=== PATIENT | female | born 1970 | race Caucasian/White ===

== ENCOUNTER 2016-12-27 11:42 | Inpatient (IN) | payer BC, OTHER ==
[2016-12-27] MEDS ORDERED: SOLU-Medrol 125 MG VIAL IVP ONE (14:26)
[2016-12-27] MEDS ORDERED: MORPHINE SULFATE INJ 4 MG IVP PRN (14:26)
[2016-12-27] MEDS ORDERED: NORCO 10/325 TAB PO PRN (14:26)
[2016-12-27] MEDS ORDERED: NS 1000 ML 1,000 ML IV ONE (14:26)
--- NOTE | 2016-12-27 14:28 | DR.UPDATE ---
H&P Update History and Physical Update: HISTORY AND PHYSICAL UPDATE FOR ADMISSION 12/27/16 MS. FENTON'S H&P WAS COMPLETED IN OUR OFFICE PRIOR TO ADMISSION. SHE HAS BEEN SEEN AND EXAMINED WITH NO CHANGES NOTED.
[2016-12-27 15:08] LABS: BASOPHILS # (AUTO) 0.1 X10^3/uL (0.0-0.1); BASOPHILS % (AUTO) 0.5 % (0.2-1.0); EOSINOPHILS % (AUTO) 0.1 % (0.9-2.9); HEMATOCRIT 42.3 % (36.0-47.0); HEMOGLOBIN 14.2 g/dL (12.0-16.0); LYMPHOCYTES # (AUTO) 3.3 X10^3/uL (1.3-2.9); MEAN CORPUSCULAR HEMOGLOBIN 28.7 pg (27.0-34.0); MEAN CORPUSCULAR HGB CONC 33.5 g/dL (33.0-35.0); MEAN CORPUSCULAR VOLUME 85.8 fL (80.0-100.0); MEAN PLATELET VOLUME 8.1 fL (7.4-11.0); MONOCYTES # (AUTO) 1.4 x10^3/uL (0.3-0.8); MONOCYTES % (AUTO) 8.7 % (0.0-13.0); NEUTROPHILS # (AUTO) 11.1 x10^3/uL (2.2-4.8); NEUTROPHILS % (AUTO) 69.7 % (42.0-75.0); PLATELET COUNT 324 X10^3/uL (150.0-450.0); RED BLOOD COUNT 4.93 X10^6/uL (3.5-5.4); WHITE BLOOD COUNT 15.9 X10^3/uL (3.6-10.0)
[2016-12-27 15:17] LABS: ALANINE AMINOTRANSFERASE 42 Units/L (12-78); ALBUMIN 3.5 g/dL (3.4-5.0); ALKALINE PHOSPHATASE 135 Units/L (46-116); ASPARTATE AMINO TRANSFERASE 16 Units/L (15-37); BLOOD UREA NITROGEN 26 mg/dL (7-18); CALCIUM 8.7 mg/dL (8.5-10.1); CARBON DIOXIDE 27.1 mmol/L (21-32); CHLORIDE 102 mmol/L (98-107); COR NA(FOR HYPERGLY) 139 mmol/L (136-145); CREATININE 0.95 mg/dL (0.55-1.02); GLUCOSE 130 mg/dL (65-99); SODIUM 138 mmol/L (136-145); TOTAL PROTEIN 7.5 g/dL (6.4-8.2); eGFR BLACK RACES > 60 (>60); eGFR NON BLACK RACES > 60 (>60)
[2016-12-27] MEDS ORDERED: NS 1/2 1000 ML IV 1,000 ML IV ONE (15:25)
[2016-12-27] MEDS: ROCEPHIN VIAL 1 GM 1 GM in NS 50 ML IV + SPIKE MINIBAG* 50 ML IV SCH (15:36)
[2016-12-27] MEDS: NS 1/2 1000 ML IV 1,000 ML IV SCH (15:36)
[2016-12-27] MEDS: VIBRAMYCIN 100 MG in NS 100 ML IV + SPIKE MINIBAG* 100 ML IV SCH ×2 (15:37→23:59)
[2016-12-27] MEDS: SINGULAIR TAB 10 MG PO SCH (15:38)
[2016-12-27] MEDS: ROBITUSSIN DM PO SCH ×3 (15:38→20:56)
[2016-12-27 16:20] LABS: MYCOPLASMA PNEUMONIAE IGM AB NEGATIVE (NEGATIVE)
[2016-12-27] MEDS: DUONEB 0.5 MG/3 MG NEB SCH ×2 (16:28→21:39)
[2016-12-27] MEDS ORDERED: SALINE 3% 15 ML NEB TX NEB ONE (16:40)
[2016-12-27 17:28] LABS: BILIRUBIN,URINE NEGATIVE (NEGATIVE); BLOOD/HEMOGLOBIN,URINE 1+ (NEGATIVE); GLUCOSE, URINE NEGATIVE (NEGATIVE); KETONES,URINE NEGATIVE (NEGATIVE); LEUKOCYTE ESTERASE ,URINE NEGATIVE (NEGATIVE); NITRITES,URINE NEGATIVE (NEGATIVE); PROTEIN,URINE 1+ (NEGATIVE); UROBILINOGEN,URINE NORMAL (NORMAL)
[2016-12-27] MEDS ORDERED: NS 100 ML IV 100 ML IV ONE (17:36)
[2016-12-27 17:39] LABS: APPEARANCE,URINE CLEAR (CLEAR); BACTERIA,URINE TRACE /HPF (NEGATIVE); CALCIUM OXALATE CRYSTALS,UR MODERATE /HPF (NEGATIVE); COLOR,URINE YELLOW (YELLOW); RBC,URINE RARE /HPF (NEGATIVE); SQUAMOUS EPITHELIAL CELL,UR FEW /HPF (NEGATIVE)
--- NOTE | 2016-12-27 19:17 | RAD ---
PA and lateral Chest Indication: Cough Comparison: 09/26/2012 Findings: The trachea is midline. The cardiac silhouette is borderline enlarged. The lungs are clear without focal infiltrate or effusion. The bony thorax is unremarkable. IMPRESSION: 1.Borderline cardiomegaly without acute airspace disease or CHF. Reported By:
--- NOTE | 2016-12-27 19:39 | CT ---
Chest CT with contrast: Indication: Bronchopneumonia, asthma. Comparison: Chest series dated December 27, 2016 at 1756 hr. Technique: Helical CT imaging of the chest was performed following the intravenous administration of contrast. Continuous transverse reconstructions as well as multiplanar reformations were provided. Findings: There is a poorly defined consolidation within the posterior sulcus of the left lower lobe . There is also mild dependent hypoventilatory change. Otherwise, the lungs are clear. The central a irways are patent. There is no pneumothorax or pleural effusion. No enlarged thoracic lymph nodes are identified. The vascular structures are within normal limits. T he heart is unremarkable, without pericardial effusion. Allowing for the arterial phase of contrast, the imaged superior abdomen is without acute abnormalit y. The patient is status post cholecystectomy. No acute skeletal abnormality or worrisome skeletal l esion is identified. Impression: Small left lower lobe consolidation, consistent with a history of pneumonia. Otherwise unremarkable CT of the chest. . Reported By:
[2016-12-27] MEDS: SOLU-Medrol 125 MG VIAL IVP SCH (21:02)
[2016-12-27] MEDS: HumuLIN R SC PRN (21:05)
[2016-12-28] MEDS: DUONEB 0.5 MG/3 MG NEB SCH ×6 (00:37→20:50)
[2016-12-28] MEDS: SOLU-Medrol 125 MG VIAL IVP SCH ×3 (05:45→21:16)
[2016-12-28] MEDS: HumuLIN R SC PRN ×4 (05:49→21:16)
--- NOTE | 2016-12-28 06:03 | RAD ---
Chest AP portable Indication: Chronic pneumonia. Comparison: December 27, 2016. Findings: There is no pneumothorax, effusion or consolidation. Heart size enlarged. No overt edema s een. Impression: Prominent heart size without other acute chest process. Reported By:
[2016-12-28 06:47] LABS: BASOPHILS % (AUTO) 0.1 % (0.2-1.0); HEMATOCRIT 40.9 % (36.0-47.0); HEMOGLOBIN 13.7 g/dL (12.0-16.0); LYMPHOCYTES # (AUTO) 0.9 X10^3/uL (1.3-2.9); LYMPHOCYTES % (AUTO) 9.7 % (21.0-51.0); MEAN CORPUSCULAR HEMOGLOBIN 29.5 pg (27.0-34.0); MEAN CORPUSCULAR HGB CONC 33.5 g/dL (33.0-35.0); MEAN CORPUSCULAR VOLUME 87.9 fL (80.0-100.0); MEAN PLATELET VOLUME 8.6 fL (7.4-11.0); MONOCYTES # (AUTO) 0.2 x10^3/uL (0.3-0.8); MONOCYTES % (AUTO) 2.3 % (0.0-13.0); NEUTROPHILS # (AUTO) 8.5 x10^3/uL (2.2-4.8); NEUTROPHILS % (AUTO) 87.9 % (42.0-75.0); PLATELET COUNT 260 X10^3/uL (150.0-450.0); RED BLOOD COUNT 4.65 X10^6/uL (3.5-5.4); RED CELL DISTRIBUTION WIDTH 13.6 % (11.6-16.5); WHITE BLOOD COUNT 9.7 X10^3/uL (3.6-10.0)
[2016-12-28 07:23] LABS: ALANINE AMINOTRANSFERASE 47 Units/L (12-78); ALBUMIN 3.2 g/dL (3.4-5.0); ALKALINE PHOSPHATASE 133 Units/L (46-116); ASPARTATE AMINO TRANSFERASE 22 Units/L (15-37); BLOOD UREA NITROGEN 14 mg/dL (7-18); CALCIUM 8.6 mg/dL (8.5-10.1); CARBON DIOXIDE 23.9 mmol/L (21-32); CHLORIDE 104 mmol/L (98-107); COR CA(FOR HYPOALB) 9.2 mg/dL (8.5-10.1); COR NA(FOR HYPERGLY) 145 mmol/L (136-145); CREATININE 0.85 mg/dL (0.55-1.02); GLUCOSE 206 mg/dL (65-99); SODIUM 142 mmol/L (136-145); TOTAL PROTEIN 7.1 g/dL (6.4-8.2); eGFR BLACK RACES > 60 (>60); eGFR NON BLACK RACES > 60 (>60)
[2016-12-28] MEDS: VIBRAMYCIN 100 MG in NS 100 ML IV + SPIKE MINIBAG* 100 ML IV SCH (08:37)
[2016-12-28] MEDS: ROCEPHIN VIAL 1 GM 1 GM in NS 50 ML IV + SPIKE MINIBAG* 50 ML IV SCH (08:37)
[2016-12-28] MEDS: ROBITUSSIN DM PO SCH ×4 (08:38→21:16)
[2016-12-28] MEDS: SINGULAIR TAB 10 MG PO SCH (08:38)
[2016-12-28] MEDS ORDERED: FORTAZ or TAZICEF INJ 2 GM in NS 50 ML IV + SPIKE MINIBAG* 50 ML IV SCH (09:00)
[2016-12-28 12:46] VITALS: BMI 45.8
[2016-12-28] MEDS: FORTAZ or TAZICEF INJ 2 GM in NS 50 ML IV + SPIKE MINIBAG* 50 ML IV SCH ×2 (14:12→21:14)
[2016-12-28] MEDS: TUSSIONEX PENNKINETIC SUSP PO PRN (14:22)
[2016-12-28] MEDS: NS 1/2 1000 ML IV 1,000 ML IV SCH ×2 (14:24→20:12)
--- NOTE | 2016-12-28 17:02 | PCM.PROG ---
Progress Note - Progress Note for Day of Date: 12/28/16 - Subjective Subjective: PATIENT IS NOTED WITH SHORTNESS OF BREATH ON EXERTION THIS MORNING. SHE CONTINUES WITH A PERSISTENT, PRODUCTIVE COUGH. PATIENT IS AFEBRILE, VITAL SIGNS ARE STABLE. ON AUSCULTATION, LUNGS ARE NOTED WITH SCATTERED WHEEZING AND RHONCHI THROUGHOUT. CBC WNL. CMP WNL EXCEPT: GLUCOSE 206, ALK PHOS 133, ALBUMIN 3.2. MYCOPLASMA PNEUMONIA NEGATIVE. CHEST CT REPORTS SMALL LEFT LOWER LOBE CONSOLIDATION. WE WILL DISCONTINUE ROCEPHIN AND DOXYCYCLINE. WE WILL START FORTAZ, CONTINUE AGGRESSIVE NEB TREATMENTS, AND FOLLOW UP IN AM WITH LABS AND CHEST XRAY. - Past Medical Family Social History Past Med/Fam/Surg Hx: No changes since H&P Allergies: Allergies No Known Drug Allergy Allergy (Verified 09/30/12 09:47) - Review of Systems ROS: No change since H&P - Vital Signs and I&O's Vital Signs: Temperature 98.5 F Pulse Rate [Right Brachial] 92 Pulse Rate 86 Respiratory Rate 20 Blood Pressure [Right Arm] 124/63 Blood Pressure 116/81 O2 Sat by Pulse Oximetry 92 Intake and Output: Intake & Output 12/26/16 12/27/16 12/28/16 12/29/16 11:59 11:59 11:59 11:59 Intake Total 1496 1630 Balance 1496 1630 - Physical Exam Oriented: Normal, Time, Person, Place Eyes: Normal. negative: Blurred Vision, Diplopia, Discharge, Pain, Redness, Photophobia Ear: Normal. negative: Swelling, Ecchymosis, Hemotypanum, Abrasion, Laceration Nose: Normal. negative: Injected, Discharge, Blood Throat: Red, Dry. negative: Tonsillar Hypertrophy, Exudate Respiratory: Generalized, Wheezes, Rhonchi Cardiovascular: Normal. negative: Murmur, Edema : Normal. negative: Dysuria, Hematuria, Frequency, Discharge, Bleeding, Auscultation: Bowel Sounds: Normal. negative: Bruit Palpation: Normal. negative: Spleen Enlarged, Liver Enlarged, Mass Pulsatile Tenderness: Normal. negative: Rebound, Guarding, Rigidity Skin: Normal. negative: Diaphoresis, Wound, Bruising, Ecchymosis Musculoskeletal: Normal Psychiatric: Normal Mood Description: Calm, Appropriate Affect: Normal Speech Pattern: Clear, Appropriate - Laboratory and Diagnostics Result Diagrams: 12/28/16 04:35 12/28/16 04:35 Labs: 12/27/16 17:13 Sputum - Expectorated Sputum Sputum Culture - Preliminary 12/27/16 17:13 Sputum - Expectorated Sputum - Final Laboratory WBC 9.7 X10^3/uL (3.6-10.0) 12/28/16 04:35 RBC 4.65 X10^6/uL (3.5-5.4) 12/28/16 04:35 Hgb 13.7 g/dL (12.0-16.0) 12/28/16 04:35 Hct 40.9 % (36.0-47.0) 12/28/16 04:35 MCV 87.9 fL (80.0-100.0) 12/28/16 04:35 MCH 29.5 pg (27.0-34.0) 12/28/16 04:35 MCHC 33.5 g/dL (33.0-35.0) 12/28/16 04:35 RDW 13.6 % (11.6-16.5) 12/28/16 04:35 Plt Count 260 X10^3/uL (150.0-450.0) 12/28/16 04:35 MPV 8.6 fL (7.4-11.0) 12/28/16 04:35 Neut % 87.9 % (42.0-75.0) H 12/28/16 04:35 Lymph % 9.7 % (21.0-51.0) L 12/28/16 04:35 [place] % 2.3 % (0.0-13.0) 12/28/16 04:35 Eos % 0.0 % (0.9-2.9) L 12/28/16 04:35 Baso % 0.1 % (0.2-1.0) L 12/28/16 04:35 Neut # 8.5 x10^3/uL (2.2-4.8) H 12/28/16 04:35 Lymph # 0.9 X10^3/uL (1.3-2.9) L 12/28/16 04:35 [place] # 0.2 x10^3/uL (0.3-0.8) L 12/28/16 04:35 Eos # 0.0 x10^3/uL (0.0-0.2) 12/28/16 04:35 Baso # 0.0 X10^3/uL (0.0-0.1) 12/28/16 04:35 Absolute Nucleated RBC 0.0 /100WBC 12/28/16 04:35 Sodium 142 mmol/L (136-145) 12/28/16 04:35 Corrected Sodium 145 mmol/L (136-145) 12/28/16 04:35 Potassium 4.7 mmol/L (3.5-5.1) 12/28/16 04:35 Chloride 104 mmol/L (98-107) 12/28/16 04:35 Carbon Dioxide 23.9 mmol/L (21-32) 12/28/16 04:35 BUN 14 mg/dL (7-18) 12/28/16 04:35 Creatinine 0.85 mg/dL (0.55-1.02) 12/28/16 04:35 Est GFR (MDRD) Af Amer > 60 (>60) 12/28/16 04:35 Est GFR (MDRD) Non-Af > 60 (>60) 12/28/16 04:35 Glucose 206 mg/dL (65-99) H 12/28/16 04:35 Calcium 8.6 mg/dL (8.5-10.1) 12/28/16 04:35 Corrected Calcium 9.2 mg/dL (8.5-10.1) 12/28/16 04:35 Magnesium 2.0 mg/dL (1.7-2.9) 12/28/16 04:35 Total Bilirubin 0.40 mg/dL (0.2-1.0) 12/28/16 04:35 AST 22 Units/L (15-37) 12/28/16 04:35 ALT 47 Units/L (12-78) 12/28/16 04:35 Alkaline Phosphatase 133 Units/L (46-116) H 12/28/16 04:35 Total Protein 7.1 g/dL (6.4-8.2) 12/28/16 04:35 Albumin 3.2 g/dL (3.4-5.0) L 12/28/16 04:35 Globulin 3.9 g/dL (2.5-4.5) 12/28/16 04:35 Albumin/Globulin Ratio 0.8 Ratio (1.1-2.1) L 12/28/16 04:35 Specimen Type Clean catch urine 12/27/16 17:06 Urine Color Yellow (YELLOW) 12/27/16 17:06 Urine Appearance Clear (CLEAR) 12/27/16 17:06 Urine pH 5.0 (5.0 - 8.0) 12/27/16 17:06 Ur Specific [place] 1.025 (1.000-1.030) 12/27/16 17:06 Urine Protein 1+ (NEGATIVE) 12/27/16 17:06 Urine Glucose (UA) Negative (NEGATIVE) 12/27/16 17:06 Urine Ketones Negative (NEGATIVE) 12/27/16 17:06 Urine Occult Blood 1+ (NEGATIVE) 12/27/16 17:06 Urine Nitrite Negative (NEGATIVE) 12/27/16 17:06 Urine Bilirubin Negative (NEGATIVE) 12/27/16 17:06 Urine Urobilinogen Normal (NORMAL) 12/27/16 17:06 Ur Leukocyte Esterase Negative (NEGATIVE) 12/27/16 17:06 Urine RBC Rare /HPF (NEGATIVE) 12/27/16 17:06 Urine WBC 0-2 /HPF (NEGATIVE) 12/27/16 17:06 Ur Squamous Epith Cells Few /HPF (NEGATIVE) 12/27/16 17:06 Calcium Oxalate Crystal Moderate /HPF (NEGATIVE) 12/27/16 17:06 Urine Bacteria Trace /HPF (NEGATIVE) 12/27/16 17:06 Ur Culture Indicated? No/not indicated 12/27/16 17:06 Mycoplasma pneumon IgG Negative (NEGATIVE) 12/27/16 14:40 - Plan (1) Pneumonia Status: Acute Qualifiers: Pneumonia type: due to unspecified organism Aspiration pneumonia type: A Laterality: left Lung location: lower lobe of lung Qualified Code(s): J18.1 - Lobar pneumonia, unspecified organism Plan: START FORTAZ IV, DISCONTINUE DOXYCYLINE AND ROCEPHIN, CONTINUE DUONEBS, ROBITUSSIN, TUSSIONEX, SOLUMEDROL, SUPPLEMENTAL OXYGEN, MONITOR LABS AND CHEST XRAY. (2) Asthma Status: Chronic Qualifiers: Asthma severity: moderate persistent Asthma complication type: with acute exacerbation Qualified Code(s): J45.41 - Moderate persistent asthma with ( acute) exacerbation Plan: ABOVE. (3) GERD (gastroesophageal reflux disease) Status: Chronic Qualifiers: Esophagitis presence: esophagitis presence not specified Qualified Code(s) : K21.9 - Gastro-esophageal reflux disease without esophagitis (4) Back pain Status: Chronic Qualifiers: Back pain location: low back pain Chronicity: chronic Back pain laterality: bilateral Sciatica presence: without sciatica Sciatica laterality: S Qualified Code(s): M54.5 - Low back pain; G89.29 - Other chronic pain (5) Diabetes Status: Acute Qualifiers: Diabetes mellitus type: type 2 Diabetes mellitus complication status: without complication Diabetes mellitus complication detail: D Diabetic retinopathy severity: D Proliferative retinopathy type: P Diabetes mellitus macular edema: D Diabetes mellitus detention insulin use: without detention use Laterality: L Chronic kidney disease stage: C Qualified Code(s): E11.9 - Type 2 diabetes mellitus without complications
[2016-12-28] MEDS ORDERED: NS 1/2 1000 ML IV 1,000 ML IV ONE (17:07)
[2016-12-28] MEDS: SNACK - Diabetic Appropriate PO SCH (20:13)
[2016-12-29] MEDS: DUONEB 0.5 MG/3 MG NEB SCH ×6 (00:40→20:17)
[2016-12-29] MEDS: FORTAZ or TAZICEF INJ 2 GM in NS 50 ML IV + SPIKE MINIBAG* 50 ML IV SCH ×3 (06:22→21:19)
[2016-12-29] MEDS: SOLU-Medrol 125 MG VIAL IVP SCH ×3 (06:23→21:21)
[2016-12-29] MEDS: TUSSIONEX PENNKINETIC SUSP PO PRN ×2 (06:23→21:23)
[2016-12-29 06:50] LABS: ALANINE AMINOTRANSFERASE 40 Units/L (12-78); ALBUMIN 3.1 g/dL (3.4-5.0); ALKALINE PHOSPHATASE 119 Units/L (46-116); ASPARTATE AMINO TRANSFERASE 16 Units/L (15-37); BLOOD UREA NITROGEN 15 mg/dL (7-18); CALCIUM 8.5 mg/dL (8.5-10.1); CARBON DIOXIDE 26.9 mmol/L (21-32); CHLORIDE 105 mmol/L (98-107); COR CA(FOR HYPOALB) 9.2 mg/dL (8.5-10.1); COR NA(FOR HYPERGLY) 146 mmol/L (136-145); CREATININE 0.93 mg/dL (0.55-1.02); GLUCOSE 224 mg/dL (65-99); SODIUM 143 mmol/L (136-145); TOTAL PROTEIN 6.8 g/dL (6.4-8.2); eGFR BLACK RACES > 60 (>60); eGFR NON BLACK RACES > 60 (>60)
[2016-12-29 06:54] LABS: BASOPHILS % (AUTO) 0.2 % (0.2-1.0); HEMATOCRIT 39.8 % (36.0-47.0); HEMOGLOBIN 13.2 g/dL (12.0-16.0); LYMPHOCYTES # (AUTO) 0.9 X10^3/uL (1.3-2.9); LYMPHOCYTES % (AUTO) 7.6 % (21.0-51.0); MEAN CORPUSCULAR HEMOGLOBIN 28.7 pg (27.0-34.0); MEAN CORPUSCULAR HGB CONC 33.1 g/dL (33.0-35.0); MEAN CORPUSCULAR VOLUME 86.9 fL (80.0-100.0); MEAN PLATELET VOLUME 8.6 fL (7.4-11.0); MONOCYTES # (AUTO) 0.4 x10^3/uL (0.3-0.8); MONOCYTES % (AUTO) 3.1 % (0.0-13.0); NEUTROPHILS # (AUTO) 10.3 x10^3/uL (2.2-4.8); NEUTROPHILS % (AUTO) 89.1 % (42.0-75.0); PLATELET COUNT 269 X10^3/uL (150.0-450.0); RED BLOOD COUNT 4.59 X10^6/uL (3.5-5.4); RED CELL DISTRIBUTION WIDTH 13.8 % (11.6-16.5); WHITE BLOOD COUNT 11.5 X10^3/uL (3.6-10.0)
--- NOTE | 2016-12-29 07:09 | RAD ---
HISTORY: Congestion and cough. Dyspnea. Single-view of the chest. Comparison: December 28, 2016. Findings: The trachea is midline. The cardiac silhouette is stable from prior. There are increased perihilar interstitial opacities seen, compatible with bronchiolitis/bronchitis. The lungs are otherwise leslee r without focal infiltrate or effusion. The bony thorax is unremarkable. IMPRESSION: Radiographic findings suggesting bronchiolitis/bronchitis. No lobar pneumonia or effusion seen. Reported By:
[2016-12-29] MEDS: SINGULAIR TAB 10 MG PO SCH (09:14)
[2016-12-29] MEDS: ROBITUSSIN DM PO SCH ×4 (09:14→21:19)
[2016-12-29] MEDS: HumuLIN R SC PRN ×3 (12:12→21:23)
[2016-12-29] MEDS ORDERED: NS 1/2 1000 ML IV 1,000 ML IV ONE (13:37)
[2016-12-29] MEDS: NS 1/2 1000 ML IV 1,000 ML IV SCH ×2 (13:46→23:17)
--- NOTE | 2016-12-29 16:58 | PCM.PROG ---
Progress Note - Progress Note for Day of Date: 12/29/16 - Subjective Subjective: PATIENT CONTINUES WITH SHORTNESS OF BREATH ON EXERTION. SHE CONTINUES WITH A PERSISTENT, PRODUCTIVE COUGH. PATIENT IS AFEBRILE, VITAL SIGNS ARE STABLE. ON AUSCULTATION, LUNGS CONTINUE WITH SCATTERED WHEEZING AND RHONCHI THROUGHOUT. CBC WNL EXCEPT: WBC 11.5. CMP WNL EXCEPT: GLUCOSE 224, ALK PHOS 119, ALBUMIN 3.1. WE WILL CONTINUE FORTAZ, AGGRESSIVE NEB TREATMENTS, AND FOLLOW UP IN AM WITH LABS AND CHEST XRAY. - Past Medical Family Social History Past Med/Fam/Surg Hx: No changes since H&P Allergies: Allergies No Known Drug Allergy Allergy (Verified 09/30/12 09:47) - Review of Systems ROS: No change since H&P - Vital Signs and I&O's Vital Signs: Temperature 98.4 F Pulse Rate [Left Brachial] 89 Pulse Rate [Right Brachial] 91 Pulse Rate 92 Respiratory Rate 18 Blood Pressure [Left Arm] 137/77 Blood Pressure [Right Arm] 138/80 Blood Pressure 116/81 O2 Sat by Pulse Oximetry 94 Intake and Output: Intake & Output 12/27/16 12/28/16 12/29/16 12/30/16 11:59 11:59 11:59 11:59 Intake Total 1496 3606 1380 Balance 1496 3606 1380 - Physical Exam Oriented: Normal, Time, Person, Place Eyes: Normal. negative: Blurred Vision, Diplopia, Discharge, Pain, Redness, Photophobia Ear: Normal. negative: Swelling, Ecchymosis, Hemotypanum, Abrasion, Laceration Nose: Normal. negative: Injected, Discharge, Blood Throat: Red, Dry. negative: Tonsillar Hypertrophy, Exudate Respiratory: Generalized, Wheezes, Rhonchi Cardiovascular: Normal. negative: Murmur, Edema : Normal. negative: Dysuria, Hematuria, Frequency, Discharge, Bleeding, Auscultation: Bowel Sounds: Normal. negative: Bruit Palpation: Normal Tenderness: Normal. negative: Rebound, Guarding, Rigidity Skin: Normal. negative: Diaphoresis, Wound, Bruising, Ecchymosis Musculoskeletal: Normal Psychiatric: Normal Mood Description: Calm, Appropriate Affect: Normal Speech Pattern: Clear, Appropriate - Laboratory and Diagnostics Result Diagrams: 12/29/16 04:26 12/29/16 04:26 Labs: 12/27/16 17:13 Sputum - Expectorated Sputum Sputum Culture - Final 12/27/16 17:13 Sputum - Expectorated Sputum - Final 12/27/16 14:50 Blood Blood Culture - Preliminary 12/27/16 14:40 Blood Blood Culture - Preliminary Laboratory WBC 11.5 X10^3/uL (3.6-10.0) H 12/29/16 04:26 RBC 4.59 X10^6/uL (3.5-5.4) 12/29/16 04:26 Hgb 13.2 g/dL (12.0-16.0) 12/29/16 04:26 Hct 39.8 % (36.0-47.0) 12/29/16 04:26 MCV 86.9 fL (80.0-100.0) 12/29/16 04:26 MCH 28.7 pg (27.0-34.0) 12/29/16 04:26 MCHC 33.1 g/dL (33.0-35.0) 12/29/16 04:26 RDW 13.8 % (11.6-16.5) 12/29/16 04:26 Plt Count 269 X10^3/uL (150.0-450.0) 12/29/16 04:26 MPV 8.6 fL (7.4-11.0) 12/29/16 04:26 Neut % 89.1 % (42.0-75.0) H 12/29/16 04:26 Lymph % 7.6 % (21.0-51.0) L 12/29/16 04:26 [place] % 3.1 % (0.0-13.0) 12/29/16 04:26 Eos % 0.0 % (0.9-2.9) L 12/29/16 04:26 Baso % 0.2 % (0.2-1.0) 12/29/16 04:26 Neut # 10.3 x10^3/uL (2.2-4.8) H 12/29/16 04:26 Lymph # 0.9 X10^3/uL (1.3-2.9) L 12/29/16 04:26 [place] # 0.4 x10^3/uL (0.3-0.8) 12/29/16 04:26 Eos # 0.0 x10^3/uL (0.0-0.2) 12/29/16 04:26 Baso # 0.0 X10^3/uL (0.0-0.1) 12/29/16 04:26 Absolute Nucleated RBC 0.0 /100WBC 12/29/16 04:26 Sodium 143 mmol/L (136-145) 12/29/16 04:26 Corrected Sodium 146 mmol/L (136-145) H 12/29/16 04:26 Potassium 4.1 mmol/L (3.5-5.1) 12/29/16 04:26 Chloride 105 mmol/L (98-107) 12/29/16 04:26 Carbon Dioxide 26.9 mmol/L (21-32) 12/29/16 04:26 BUN 15 mg/dL (7-18) 12/29/16 04:26 Creatinine 0.93 mg/dL (0.55-1.02) 12/29/16 04:26 Est GFR (MDRD) Af Amer > 60 (>60) 12/29/16 04:26 Est GFR (MDRD) Non-Af > 60 (>60) 12/29/16 04:26 Glucose 224 mg/dL (65-99) H 12/29/16 04:26 Hemoglobin A1c 6.7 % (4.5-6.2) H 12/29/16 04:26 Calcium 8.5 mg/dL (8.5-10.1) 12/29/16 04:26 Corrected Calcium 9.2 mg/dL (8.5-10.1) 12/29/16 04:26 Magnesium 2.0 mg/dL (1.7-2.9) 12/28/16 04:35 Total Bilirubin 0.40 mg/dL (0.2-1.0) 12/29/16 04:26 AST 16 Units/L (15-37) 12/29/16 04:26 ALT 40 Units/L (12-78) 12/29/16 04:26 Alkaline Phosphatase 119 Units/L (46-116) H 12/29/16 04:26 Total Protein 6.8 g/dL (6.4-8.2) 12/29/16 04:26 Albumin 3.1 g/dL (3.4-5.0) L 12/29/16 04:26 Globulin 3.7 g/dL (2.5-4.5) 12/29/16 04:26 Albumin/Globulin Ratio 0.8 Ratio (1.1-2.1) L 12/29/16 04:26 Specimen Type Clean catch urine 12/27/16 17:06 Urine Color Yellow (YELLOW) 12/27/16 17:06 Urine Appearance Clear (CLEAR) 12/27/16 17:06 Urine pH 5.0 (5.0 - 8.0) 12/27/16 17:06 Ur Specific [place] 1.025 (1.000-1.030) 12/27/16 17:06 Urine Protein 1+ (NEGATIVE) 12/27/16 17:06 Urine Glucose (UA) Negative (NEGATIVE) 12/27/16 17:06 Urine Ketones Negative (NEGATIVE) 12/27/16 17:06 Urine Occult Blood 1+ (NEGATIVE) 12/27/16 17:06 Urine Nitrite Negative (NEGATIVE) 12/27/16 17:06 Urine Bilirubin Negative (NEGATIVE) 12/27/16 17:06 Urine Urobilinogen Normal (NORMAL) 12/27/16 17:06 Ur Leukocyte Esterase Negative (NEGATIVE) 12/27/16 17:06 Urine RBC Rare /HPF (NEGATIVE) 12/27/16 17:06 Urine WBC 0-2 /HPF (NEGATIVE) 12/27/16 17:06 Ur Squamous Epith Cells Few /HPF (NEGATIVE) 12/27/16 17:06 Calcium Oxalate Crystal Moderate /HPF (NEGATIVE) 12/27/16 17:06 Urine Bacteria Trace /HPF (NEGATIVE) 12/27/16 17:06 Ur Culture Indicated? No/not indicated 12/27/16 17:06 Mycoplasma pneumon IgG Negative (NEGATIVE) 12/27/16 14:40 - Plan (1) Pneumonia Status: Acute Qualifiers: Pneumonia type: due to unspecified organism Aspiration pneumonia type: A Laterality: left Lung location: lower lobe of lung Qualified Code(s): J18.1 - Lobar pneumonia, unspecified organism Plan: CONTINUE FORTAZ IV, DUONEBS, ROBITUSSIN, TUSSIONEX, SOLUMEDROL, SUPPLEMENTAL OXYGEN, MONITOR LABS AND CHEST XRAY. (2) Asthma Status: Chronic Qualifiers: Asthma severity: moderate persistent Asthma complication type: with acute exacerbation Qualified Code(s): J45.41 - Moderate persistent asthma with ( acute) exacerbation Plan: ABOVE. (3) GERD (gastroesophageal reflux disease) Status: Chronic Qualifiers: Esophagitis presence: esophagitis presence not specified Qualified Code(s) : K21.9 - Gastro-esophageal reflux disease without esophagitis (4) Back pain Status: Chronic Qualifiers: Back pain location: low back pain Chronicity: chronic Back pain laterality: bilateral Sciatica presence: without sciatica Sciatica laterality: S Qualified Code(s): M54.5 - Low back pain; G89.29 - Other chronic pain (5) Diabetes Status: Acute Qualifiers: Diabetes mellitus type: type 2 Diabetes mellitus complication status: without complication Diabetes mellitus complication detail: D Diabetic retinopathy severity: D Proliferative retinopathy type: P Diabetes mellitus macular edema: D Diabetes mellitus alf insulin use: without intermediate accountant use Laterality: L Chronic kidney disease stage: C Qualified Code(s): E11.9 - Type 2 diabetes mellitus without complications
[2016-12-29] MEDS: SNACK - Diabetic Appropriate PO SCH (21:18)
[2016-12-30] MEDS: DUONEB 0.5 MG/3 MG NEB SCH ×3 (01:22→09:05)
[2016-12-30] MEDS: SOLU-Medrol 125 MG VIAL IVP SCH (05:50)
[2016-12-30] MEDS: FORTAZ or TAZICEF INJ 2 GM in NS 50 ML IV + SPIKE MINIBAG* 50 ML IV SCH (05:51)
[2016-12-30] MEDS: HumuLIN R SC PRN (05:55)
[2016-12-30 06:05] LABS: BASOPHILS % (AUTO) 0.1 % (0.2-1.0); HEMATOCRIT 40.5 % (36.0-47.0); HEMOGLOBIN 13.4 g/dL (12.0-16.0); LYMPHOCYTES % (AUTO) 7.5 % (21.0-51.0); MEAN CORPUSCULAR HEMOGLOBIN 28.9 pg (27.0-34.0); MEAN CORPUSCULAR HGB CONC 33.1 g/dL (33.0-35.0); MEAN CORPUSCULAR VOLUME 87.3 fL (80.0-100.0); MEAN PLATELET VOLUME 8.4 fL (7.4-11.0); MONOCYTES # (AUTO) 0.4 x10^3/uL (0.3-0.8); NEUTROPHILS # (AUTO) 11.7 x10^3/uL (2.2-4.8); NEUTROPHILS % (AUTO) 89.4 % (42.0-75.0); PLATELET COUNT 240 X10^3/uL (150.0-450.0); RED BLOOD COUNT 4.64 X10^6/uL (3.5-5.4); RED CELL DISTRIBUTION WIDTH 14.3 % (11.6-16.5); WHITE BLOOD COUNT 13.1 X10^3/uL (3.6-10.0)
[2016-12-30 07:06] LABS: ALANINE AMINOTRANSFERASE 39 Units/L (12-78); ALBUMIN 3.1 g/dL (3.4-5.0); ALKALINE PHOSPHATASE 115 Units/L (46-116); ASPARTATE AMINO TRANSFERASE 9 Units/L (15-37); BLOOD UREA NITROGEN 16 mg/dL (7-18); CALCIUM 8.6 mg/dL (8.5-10.1); CARBON DIOXIDE 26.8 mmol/L (21-32); CHLORIDE 102 mmol/L (98-107); COR CA(FOR HYPOALB) 9.3 mg/dL (8.5-10.1); COR NA(FOR HYPERGLY) 143 mmol/L (136-145); CREATININE 0.94 mg/dL (0.55-1.02); GLUCOSE 233 mg/dL (65-99); SODIUM 140 mmol/L (136-145); TOTAL PROTEIN 6.8 g/dL (6.4-8.2); eGFR BLACK RACES > 60 (>60); eGFR NON BLACK RACES > 60 (>60)
[2016-12-30] MEDS: ROBITUSSIN DM PO SCH (09:02)
[2016-12-30] MEDS: SINGULAIR TAB 10 MG PO SCH (09:02)
--- NOTE | 2016-12-30 10:30 | RAD ---
HISTORY: Bronchopneumonia, shortness of breath Study: AP chest obtained 6:57 a.m. Comparison: December 29, 2016 Findings: The trachea is midline . There is no widening or shift of mediastinum. The cardiac silhouette appear s within normal limits. The costophrenic angles are sharp and both diaphragms are adequately maintai schuyler. The lungs are adequately aerated. Osseous structures are within normal limits for the patient's age There is no evidence of active inflammatory disease. IMPRESSION: 1. Heart normal size lungs clear Reported By:
[2016-12-30 11:04] VITALS: BP 138/75
== END 2016-12-30 10:13 | disposition home or self-care (01) | DRG 194 ==
LOC: MED/SURG 11:42
PROVIDERS: ADMIT Internal Medicine; ATTEND Internal Medicine
DX: J18.0 Bronchopneumonia, unspecified organism (principal); J45.41 Moderate persistent asthma with (acute) exacerbation; R06.02 Shortness of breath; K21.9 Gastro-esophageal reflux disease without esophagitis; M54.5 Low back pain; E11.65 Type 2 diabetes mellitus with hyperglycemia; D72.828 Other elevated white blood cell count; E03.8 Other specified hypothyroidism; R53.81 Other malaise
CPT/HCPCS: 36415; 71010; 71020; 71260; 80053; 81001; 83036; 83735; 85025; 86738; 87040; 87070; 87205; 94640; 94760; A4222; J0696; J0713; J1815; J2930; J3490; J7620